=== PATIENT | female | born 1940 | race Caucasian/White ===

== ENCOUNTER 2018-08-23 15:40 | Emergency (ER) | payer MEDICARE, BC ==
--- NOTE | 2018-08-23 16:35 | EDM.PDOC ---
ED HPI GENERAL MEDICAL PROBLEM - General Chief Complaint: Lower Extremity Injury/Pain Stated Complaint: L LEG PAIN Time Seen by Provider: 08/23/18 16:00 Source of Information: Reports: Patient History Limitations: Reports: No Limitations - History of Present Illness INITIAL COMMENTS - FREE TEXT/NARRATIVE: 78-year-old female who was taking down a large picture from her wall at approximately 9 AM today and she lost her balance and fell with the picture in her hands landing on her left hip and side. She did not hit her head. There was no loss of consciousness. She did have immediate pain in her left hip area but she was able to get up and walk. The pain has progressively worsened with time and it prompted her to go to her doctor's clinic [facility]. While there, she did have x-rays performed and urine the x-rays she rolled on her side and felt a pop in her left hip area and she has had severe pain with any kind of movement of her left lower extremity since that time. She has had no neck pain. She's had no back pain. Some nausea associated with the pain but no vomiting. She has had urine output today with no blood in the urine. No abdominal pain. No trouble breathing. She rates pain as a 3/10 now after meds were given by the embolus crew that brought her here from [facility]. With any kind of movement, her pain goes up to a 10/10. It is sharp and spasm-like. There are no other associated signs or symptoms. There are no other modifying factors. 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: see above L hip/upper thigh Pain Score (Numeric/FACES): 5 - Related Data Allergies Allergy/AdvReac Type Severity Reaction Status Date / Time No Known Allergies Allergy Verified 08/23/18 15:55 Home Meds: Home Meds Atenolol 50 mg PO BID 12/03/15 [History] Dextran 70/Hypromellose [Artificial Tears] 1 drop EYEBOTH ASDIRECTED PRN [History] Flecainide [Tambocor] 50 mg PO BID 12/03/15 [History] Ibuprofen [Advil] 200 mg PO Q6H PRN 12/03/15 [History] Omeprazole 20 mg PO DAILY PRN 12/03/15 [History] Triamterene/Hydrochlorothiazid [Triamterene-HCTZ 37.5-25 MG] 25 - 37.5 mg PO DAILY 12/03/15 [History] traZODone 200 tab PO BEDTIME 12/03/15 [History] Aspirin [Ecotrin] 81 mg PO DAILY 12/04/15 [History] Past Medical History HEENT History: Reports: Other (See Below) Other HEENT History: PLEGLAUCOMA Cardiovascular History: Reports: Afib (On baby aspirin only), High Cholesterol, Hypertension Gastrointestinal History: Reports: Cholelithiasis, Chronic Constipation, GERD Other Gastrointestinal History: BENIGN NEOPLASM OF COLON Genitourinary History: Reports: Other (See Below) Other Genitourinary History: RENAL MALIGNANT TUMOR Musculoskeletal History: Reports: Neck Pain, Chronic Neurological History: Reports: Other (See Below) Other Neuro History: Subarachnoid hemorrhage associated with a fall and head trauma Oncologic (Cancer) History: Reports: Renal - Infectious Disease History Infectious Disease History: Reports: Chicken Pox, Measles, Mumps - Past Surgical History GI Surgical History: Reports: Cholecystectomy, Colonoscopy (2), EGD Female Surgical History: Reports: Hysterectomy, Nephrectomy (Partial left nephrectomy) Oncologic Surgical History: Reports: Other (See Below) Social & Family History - Tobacco Use Smoking Status *Q: Former Smoker (None 40-50 years.) - Alcohol Use Alcohol Use History: No - Living Situation & Occupation Occupation: Retired Review of Systems - Review of Systems Review Of Systems: See Below Constitutional: Reports: No Symptoms Eyes: Reports: No Symptoms Ears: Reports: No Symptoms Nose: Reports: No Symptoms Mouth/Throat: Reports: No Symptoms Respiratory: Reports: No Symptoms Cardiovascular: Reports: No Symptoms GI/Abdominal: Reports: Nausea Genitourinary: Reports: No Symptoms. Denies: Hematuria Musculoskeletal: Reports: Leg Pain (Severe left hip and proximal thigh pain post fall.). Denies: Neck Pain, Back Pain Skin: Reports: No Symptoms (No open wounds.) Neurological: Reports: No Symptoms (No head injury. No loss of consciousness.) Psychiatric: Reports: No Symptoms ED EXAM, GENERAL - Physical Exam Exam: See Below Exam Limited By: No Limitations General Appearance: Alert, WD/WN, No Apparent Distress Eye Exam: Bilateral Eye: EOMI, Normal Inspection, PERRL Ears: Normal External Exam, Hearing Grossly Normal Nose: Normal Inspection, Normal Mucosa Throat/Mouth: Normal Inspection, Normal Voice, No Airway Compromise Head: Atraumatic, Normocephalic Neck: Normal Inspection, Supple, Non-Tender, Full Range of Motion Respiratory/Chest: No Respiratory Distress, Lungs Clear, Normal Breath Sounds, No Accessory Muscle Use, Chest Non-Tender Cardiovascular: Normal Peripheral Pulses, Regular Rate, Rhythm, No JVD Peripheral Pulses: 2+: Radial (L), Radial (R), Dorsalis Pedis (L), Dorsalis Pedis (R) GI/Abdominal: Normal Bowel Sounds, Soft, Non-Tender, No Organomegaly, No Distention, No Mass Back Exam: Normal Inspection Extremities: Normal Capillary Refill, Limited Range of Motion (Extreme pain with any movement of her left lower leg at the level of her hip and proximal thigh.) Neurological: Alert, Oriented, CN II-XII Intact, Normal Cognition, No Motor/ Sensory Deficits Psychiatric: Normal Affect Skin Exam: Warm, Dry, Intact, Normal Color, No Rash EKG INTERPRETATION EKG Date: 08/23/18 Time: 16:44 Rhythm: NSR Rate (Beats/Min): 66 [place]: Normal P-Wave: Enlarged QRS: Normal ST-T: Normal QT: Prolonged Comparison: Change From Previous EKG EKG Interpretation Comments: Normal sinus rhythm with a rate of 66. There is now a prolonged QTC which is different from 02/01/2018. Otherwise no change from 02/01/2018. Course - Vital Signs Last Recorded V/S: Last Vital Signs Temp 36.7 C 08/23/18 15:40 Pulse 80 08/23/18 17:27 Resp 18 08/23/18 17:27 BP 141/93 H 08/23/18 17:27 Pulse Ox 100 08/23/18 17:27 - Orders/Labs/Meds Orders: Active Orders 24 hr Category Date Time Status EKG Documentation Completion [RC] ASDIRECTED Care 08/23/18 16:37 Active Insert Urinary Catheter [OM.PC] Q24H Care 08/23/18 16:45 Ordered Urinary Catheter Assessment [RC] QSHIFT Care 08/23/18 16:37 Active NPO Now [Nothing per Oral Now Diet] [DIET] Diet 08/24/18 Breakfast Ordered Hip Min 2V or 3V w Pelvis Lt [CR] Stat Exams 08/23/18 16:36 Taken Morphine Med 08/23/18 16:39 Active 2 mg IVPUSH Q5M PRN Ondansetron [Zofran] Med 08/23/18 16:39 Active 4 mg IVPUSH Q10M PRN Sodium Chloride 0.9% [Normal Saline] 1,000 ml Med 08/23/18 16:45 Active IV ASDIRECTED Sodium Chloride 0.9% [Normal Saline] 500 ml Med 08/23/18 17:05 Active IV ASDIRECTED EKG 12 Lead [EK] Routine Ther 08/23/18 16:36 Ordered Medication Orders Sodium Chloride (Normal Saline) 1,000 mls @ 125 mls/hr IV ASDIRECTED JANET Sodium Chloride (Normal Saline) 500 mls @ 999 mls/hr IV ASDIRECTED JANET Last Admin: 08/23/18 17:05 Dose: 999 mls/hr Morphine Sulfate (Morphine) 2 mg IVPUSH Q5M PRN PRN Reason: Hip pain Last Admin: 08/23/18 17:22 Dose: 2 mg Admin: 08/23/18 17:06 Dose: 2 mg Ondansetron HCl (Zofran) 4 mg IVPUSH Q10M PRN PRN Reason: Nausea/Vomiting Labs: Laboratory Tests 08/23/18 08/23/18 08/23/18 Range/Units 16:05 16:05 17:17 WBC 15.5 H (4.5-12.0) X10-3/uL RBC 4.41 (3.23-5.20) x10(6)uL Hgb 13.4 (11.5-15.5) g/dL Hct 38.9 (30.0-51.3) % MCV 88.1 (80-96) fL MCH 30.4 (27.7-33.6) pg MCHC 34.4 (32.2-35.4) g/dL RDW 13.0 (11.5-15.5) % Plt Count 280 (125-369) X10(3)uL MPV 7.3 L (7.4-10.4) fL Add Manual Diff Yes Neutrophils % (Manual) 93 H (46-82) % Lymphocytes % (Manual) 2 L (13-37) % Monocytes % (Manual) 5 (4-12) % Sodium 130 L (135-145) mmol/L Potassium 3.7 (3.5-5.3) mmol/L Chloride 96 L (100-110) mmol/L Carbon Dioxide 24 (21-32) mmol/L BUN 17 (7-18) mg/dL Creatinine 0.9 (0.55-1.02) mg/dL Est Cr Clr Drug Dosing 42.06 mL/min Estimated GFR (MDRD) > 60 (>60) BUN/Creatinine Ratio 18.9 (9-20) Glucose 139 H (80-116) mg/dL Calcium 9.3 (8.6-10.2) mg/dL Total Bilirubin 1.5 H (0.1-1.3) mg/dL AST 34 H D (5-25) IU/L ALT 38 H D (12-36) U/L Alkaline Phosphatase 49 L (56-112) IU/L Total Protein 6.8 (6.0-8.0) g/dL Albumin 4.0 (3.2-4.6) g/dL Globulin 2.8 g/dL Albumin/Globulin Ratio 1.4 Urine Color Yellow (YELLOW) Urine Appearance Slightly cloudy (CLEAR) Urine pH 6.0 (5.0-6.5) Ur Specific [place] 1.020 (1.010-1.025) Urine Protein Negative (NEGATIVE) mg/dL Urine Glucose (UA) Normal (NORMAL) mg/dL Urine Ketones 50 H (NEGATIVE) mg/dL Urine Occult Blood Negative (NEGATIVE) Urine Nitrite Negative (NEGATIVE) Urine Bilirubin Negative (NEGATIVE) Urine Urobilinogen Normal (NEGATIVE) mg/dL Ur Leukocyte Esterase Negative (NEGATIVE) Urine RBC 0-5 (0-5) Urine WBC 0-5 (0-5) Ur Squamous Epith Cells Few H (NS,R,O) Urine Bacteria Few H (NS) Urine Mucus Few H (NS) Meds: Medications Generic Name Dose Route Start Last Admin Trade Name Freq PRN Reason Stop Dose Admin Sodium Chloride 1,000 mls @ 125 mls/hr 08/23/18 16:45 Normal Saline IV ASDIRECTED JANET Sodium Chloride 500 mls @ 999 mls/hr 08/23/18 17:05 08/23/18 17:05 Normal Saline IV 999 mls/hr ASDIRECTED JANET Administration Morphine Sulfate 2 mg 08/23/18 16:39 08/23/18 17:22 Morphine IVPUSH 2 mg Q5M PRN Administration Hip pain Ondansetron HCl 4 mg 08/23/18 16:39 Zofran IVPUSH Q10M PRN Nausea/Vomiting - Radiology Interpretation Free Text/Narrative:: Pelvis and left hip x-ray shows a displaced subcapital hip fracture. - Re-Assessments/Exams Free Text/Narrative Re-Assessment/Exam: 08/23/18 18:03: Patient's laboratory data does show some mild LFT elevation but were otherwise unremarkable including a normal urine. Her EKG was essentially normal. Patient has a displaced left Hip fracture. She will need orthopedic specially services which are not available at [facility] [place] at this time. I had discussed the finding of the x-ray with the patient and her and they are desirous of going to [facility] in [place]. Therefore, I called and discussed the patient's case with Dr. Woods, hospitalist at [facility] in [place], and he has agreed to accept the patient in transfer. Therefore, the patient will be transferred to [facility] in [place] via ambulance. The patient has received ongoing pain medications IV with good control of her pain. A [place] catheter has been placed. The patient has been kept nothing by mouth. IV fluids have been given and she is receiving 150 mL per hour normal saline. The patient has remained vitally stable while in the emergency department. Departure - Departure Time of Disposition: 18:10 Disposition: DC/Tfer to Acute Hospital 02 Condition: Good Clinical Impression: Elevated LFTs Subcapital fracture of left hip Qualifiers: Encounter type: initial encounter Fracture type: closed Qualified Code(s): S72.012A - Unspecified intracapsular fracture of left femur, initial encounter for closed fracture Fall from standing Qualifiers: Encounter type: initial encounter Qualified Code(s): W19.XXXA - Unspecified fall, initial encounter - Discharge Information Referrals: Wayne Mendoza MD [Primary Care Provider] - Forms: ED Department Discharge - My Orders Last 24 Hours: My Active Orders 08/23/18 16:36 Hip Min 2V or 3V w Pelvis Lt [CR] Stat EKG 12 Lead [EK] Routine 08/23/18 16:37 EKG Documentation Completion [RC] ASDIRECTED Urinary Catheter Assessment [RC] QSHIFT 08/23/18 16:39 Morphine 2 mg IVPUSH Q5M PRN Ondansetron [Zofran] 4 mg IVPUSH Q10M PRN 08/23/18 16:45 Insert Urinary Catheter [OM.PC] Q24H Sodium Chloride 0.9% [Normal Saline] 1,000 ml IV ASDIRECTED 08/23/18 17:05 Sodium Chloride 0.9% [Normal Saline] 500 ml IV ASDIRECTED 08/24/18 Breakfast NPO Now [Nothing per Oral Now Diet] [DIET] - Assessment/Plan Last 24 Hours: My Active Orders 08/23/18 16:36 Hip Min 2V or 3V w Pelvis Lt [CR] Stat EKG 12 Lead [EK] Routine 08/23/18 16:37 EKG Documentation Completion [RC] ASDIRECTED Urinary Catheter Assessment [RC] QSHIFT 08/23/18 16:39 Morphine 2 mg IVPUSH Q5M PRN Ondansetron [Zofran] 4 mg IVPUSH Q10M PRN 08/23/18 16:45 Insert Urinary Catheter [OM.PC] Q24H Sodium Chloride 0.9% [Normal Saline] 1,000 ml IV ASDIRECTED 08/23/18 17:05 Sodium Chloride 0.9% [Normal Saline] 500 ml IV ASDIRECTED 08/24/18 Breakfast NPO Now [Nothing per Oral Now Diet] [DIET]
[2018-08-23] MEDS ORDERED: Ondansetron 4 MG/2 ML SDV IVPUSH PRN (16:39)
[2018-08-23] MEDS ORDERED: Sodium Chloride 0.9% 500 ML IV ONE (16:39)
[2018-08-23] MEDS ORDERED: Sodium Chloride 0.9% 1,000 ML IV SCH (16:45)
[2018-08-23] MEDS ORDERED: Sodium Chloride 0.9% 500 ML IV SCH ×2 (17:05)
[2018-08-23] MEDS: Morphine 2 MG/ML Syringe IVPUSH PRN ×3 (17:06→18:53)
[2018-08-23 18:56] VITALS: BP 137/59
--- NOTE | 2018-08-24 10:49 | CR ---
INDICATION: Fall with left hip fracture, question displaced now. LEFT HIP WITH PELVIS: Frontal view of the pelvis with frontal and lateral views of the left hip were obtained and revealed a subcapital femoral neck fracture, confirmed compared with 08/23/18 study from 1355 hours. The current study is 1634 hours. There is lateral offset of the distal fracture fragment with the femoral head angulated laterally. There is also cranial overriding of the distal fracture fragment of the left femur. Mild degenerative changes are noted at the hip joints with only minimal loss of joint space suggested. Sacroiliac joints appear to be fairly intact with minimal degenerative change at the left sacroiliac joint. IMPRESSION: Left subcapital femoral neck fracture with deformity - change in position is noted compared with the earlier study obtained at the clinic - the undisplaced fracture seen at the clinic is now displaced. MTDD
== END 2018-08-23 18:55 ==
LOC: FB.ED 15:40
DX: S72.012A Unspecified intracapsular fracture of left femur, initial encounter for closed fracture (principal); E78.00 Pure hypercholesterolemia, unspecified; R79.89 Other specified abnormal findings of blood chemistry; I10 Essential (primary) hypertension; I48.91 Unspecified atrial fibrillation; Z87.891 Personal history of nicotine dependence; Z79.899 Other long term (current) drug therapy; W17.89XA Other fall from one level to another, initial encounter
CPT/HCPCS: 36415; 51702; 73502; 80053; 81001; 85025; 93005; 93010; 96361; 96374; 96376; 99285; J2270; J7030

== ENCOUNTER 2022-07-26 08:24 | Day surgery (SDC) | payer MEDICARE, OTHER ==
[2022-07-26] MEDS ORDERED: fentaNYL 100 MCG/2 ML SDV IV ONE (08:25)
[2022-07-26] MEDS ORDERED: Sodium Chloride 0.9% 10 ML Syringe IV ONE (08:25)
[2022-07-26] MEDS ORDERED: Midazolam 1 MG/ML 2 ML SDV IV ONE (08:25)
[2022-07-26] MEDS ORDERED: Lactated Ringers 1,000 ML IV PRN (08:30)
[2022-07-26] MEDS ORDERED: Sodium Chloride 0.9% 10 ML Syringe FLUSH PRN (08:30)
[2022-07-26] MEDS ORDERED: acetaZOLAMIDE 500 MG Cap.ER PO ONE (10:30)
[2022-07-26 11:27] VITALS: BP 148/66; PULSE 51
== END 2022-07-26 11:10 | disposition home or self-care (01) ==
LOC: FB.SDS 08:24
PROVIDERS: ATTEND Ophthalmology
DX: H25.813 Combined forms of age-related cataract, bilateral (principal); H40.1131 Primary open-angle glaucoma, bilateral, mild stage; H16.103 Unspecified superficial keratitis, bilateral; H35.362 Drusen (degenerative) of macula, left eye; H18.413 Arcus senilis, bilateral; E87.1 Hypo-osmolality and hyponatremia; I48.0 Paroxysmal atrial fibrillation; I10 Essential (primary) hypertension; G47.00 Insomnia, unspecified; Z79.899 Other long term (current) drug therapy; Z79.82 Long term (current) use of aspirin; Z98.890 Other specified postprocedural states; Z87.891 Personal history of nicotine dependence
CPT/HCPCS: 00142; 66984; A9270; J2250; J3010; J3490; V2632

== ENCOUNTER 2022-08-09 06:29 | Day surgery (SDC) | payer MEDICARE, OTHER ==
[2022-08-09] MEDS ORDERED: Midazolam 1 MG/ML 2 ML SDV IV ONE (06:30)
[2022-08-09] MEDS ORDERED: fentaNYL 100 MCG/2 ML SDV IV ONE (06:30)
[2022-08-09] MEDS ORDERED: Glycopyrrolate 0.2 MG/ML 5 ML MDV IV ONE (06:30)
[2022-08-09] MEDS ORDERED: Lactated Ringers 1,000 ML IV PRN (06:45)
[2022-08-09] MEDS ORDERED: Sodium Chloride 0.9% 10 ML Syringe FLUSH PRN (06:45)
[2022-08-09] MEDS ORDERED: acetaZOLAMIDE 500 MG Cap.ER PO ONE (08:45)
[2022-08-09 09:50] VITALS: BP 150/85; PULSE 66
== END 2022-08-09 09:31 | disposition home or self-care (01) ==
LOC: FB.SDS 06:29
PROVIDERS: ATTEND Ophthalmology
DX: H26.9 Unspecified cataract (principal); I48.0 Paroxysmal atrial fibrillation; I10 Essential (primary) hypertension; E78.5 Hyperlipidemia, unspecified; Z79.899 Other long term (current) drug therapy; Z87.891 Personal history of nicotine dependence
CPT/HCPCS: 00142; A9270-GY; J2250; J3010; J3490; V2632

== ENCOUNTER 2022-10-09 09:25 | Emergency (ER) | payer MEDICARE, OTHER ==
[2022-10-09] MEDS ORDERED: Ondansetron 4 MG/2 ML SDV IVPUSH ONE (09:38)
[2022-10-09] MEDS: Sodium Chloride 0.9% 10 ML Syringe FLUSH PRN ×2 (09:50→10:41)
[2022-10-09] MEDS ORDERED: Sodium Chloride 0.9% 500 ML IV ONE ×2 (09:51→10:35)
[2022-10-09] MEDS ORDERED: Sodium Chloride 0.9% 1,000 ML IV SCH (10:00)
[2022-10-09 10:27] LABS: BASOPHILS PERCENT AUTO 0.5 % (0.2-1.5); EOSINOPHILS PERCENT AUTO 0.6 % (0.6-8.1); HEMATOCRIT 40.4 % (34.2-48.2); HEMOGLOBIN 13.7 g/dL (11.4-15.5); LYMPHOCYTES ABSOLUTE AUTO 0.9 x10-3/uL (1.0-4.4); LYMPHOCYTES PERCENT AUTO 11.1 % (18.4-52.1); MEAN CORPUSCULAR HEMOGLOBIN 30.2 pg (23.9-33.9); MEAN CORPUSCULAR HGB CONC 34.1 g/dL (31.9-34.8); MEAN CORPUSCULAR VOLUME 88.6 fL (76.7-100.5); MEAN PLATELET VOLUME 7.1 fL (7.1-12.4); MONOCYTES ABSOLUTE AUTO 0.6 x10-3/uL (0.3-1.0); MONOCYTES PERCENT AUTO 7.4 % (4.4-15.7); NEUTROPHILS ABSOLUTE AUTO 6.5 x10-3/uL (1.5-6.3); NEUTROPHILS PERCENT AUTO 80.4 % (30.8-76.2); PLATELET COUNT,PLT 289 x10(3)uL (151-488); RED BLOOD CELL COUNT 4.56 x10(6)uL (3.60-5.20); RED CELL DISTRIBUTION WIDTH 14.3 % (12.3-16.5)
[2022-10-09 10:35] LABS: BLOOD UREA NITROGEN,BUN 19 mg/dL (7-18); BUN/CREATININE RATIO 27.1 (9-20); CALCIUM 10.3 mg/dL (8.6-10.2); CARBON DIOXIDE,CO2 25 mmol/L (21-32); CHLORIDE,CL 98 mmol/L (100-110); CREATININE 0.7 mg/dL (0.55-1.02); ESTIMATED GFR 87 mL/min (>60); GLUCOSE RANDOM 112 mg/dL (80-116); POTASSIUM,K 3.9 mmol/L (3.5-5.3); SODIUM,NA 136 mmol/L (135-145)
[2022-10-09] MEDS ORDERED: Metoclopramide 10 MG/2 ML SDV IVPUSH ONE (10:35)
[2022-10-09 10:43] LABS: TROPONIN I 10.4 pg/mL (4.0-60.3)
[2022-10-09 10:49] LABS: A/G RATIO 1.2; ALANINE AMINOTRANSFERASE,ALT 24 U/L (12-36); ALBUMIN 3.8 g/dL (3.2-4.6); ALKALINE PHOSPHATASE 56 IU/L (56-112); ASPARTATE AMNIOTRANSFERASE,AST 18 IU/L (5-25); MAGNESIUM 1.8 mg/dL (1.8-2.5)
[2022-10-09 11:20] LABS: BILIRUBIN,URINE NEGATIVE (NEGATIVE); GLUCOSE,URINE NORMAL (NORMAL); KETONES,URINE 50 mg/dL (NEGATIVE); LEUKOCYTE ESTERASE,URINE LARGE (NEGATIVE); NITRITE,URINE NEGATIVE (NEGATIVE); OCCULT BLOOD,URINE MODERATE (NEGATIVE); PROTEIN,URINE NEGATIVE (NEGATIVE); UROBILINOGEN,URINE NORMAL (NEGATIVE)
[2022-10-09 11:24] LABS: APPEARANCE,URINE SLIGHTLY CLOUDY (CLEAR); BACTERIA,URINE MANY (NS); COLOR,URINE YELLOW (YELLOW); SQUAMOUS EPITHELIAL CELLS,UR FEW (NS,R,O); WBC,URINE 50-75 (0-5)
[2022-10-09] MEDS ORDERED: cefTRIAXone 2 GM Vial IVPUSH ONE (11:28)
[2022-10-09 13:22] VITALS: BP 124/71; PULSE 72
== END 2022-10-09 11:55 | disposition home or self-care (01) ==
LOC: FB.ED 09:25
DX: E86.0 Dehydration (principal); N39.0 Urinary tract infection, site not specified; R31.9 Hematuria, unspecified; I48.91 Unspecified atrial fibrillation; I10 Essential (primary) hypertension; E78.00 Pure hypercholesterolemia, unspecified; K21.9 Gastro-esophageal reflux disease without esophagitis; M19.90 Unspecified osteoarthritis, unspecified site; Z79.82 Long term (current) use of aspirin; Z79.899 Other long term (current) drug therapy
CPT/HCPCS: 36415; 80053; 81001; 83605; 83690; 83735; 84484; 85025; 86140; 87086; 87088; 93005; 96361; 96374; 96375; 99284; J0696; J2405; J2765; J3490; J7030; J7040

== ENCOUNTER 2024-12-15 12:10 | Emergency (ER) | payer MEDICARE, OTHER ==
[2024-12-15] MEDS ORDERED: Sodium Chloride 0.9% 10 ML Syringe FLUSH PRN (12:12)
[2024-12-15] MEDS: Ondansetron 4 MG/2 ML SDV IVPUSH ONE (12:22)
[2024-12-15 12:53] LABS: MEAN PLATELET VOLUME 6.6 fL (7.1-12.4); PLATELET COUNT,PLT 347 x10(3)uL (151-488); RED BLOOD CELL COUNT 4.73 x10(6)uL (3.60-5.20); RED CELL DISTRIBUTION WIDTH 14.0 % (12.3-16.5); WHITE BLOOD CELL COUNT,WBC 10.9 x10-3/uL (3.0-10.3)
[2024-12-15 13:00] LABS: A/G RATIO 1.2; ALANINE AMINOTRANSFERASE,ALT 17 U/L (12-36); ASPARTATE AMNIOTRANSFERASE,AST 14 IU/L (5-25); BILIRUBIN TOTAL 1.5 mg/dL (0.1-1.3); BLOOD UREA NITROGEN,BUN 8 mg/dL (7-18); CARBON DIOXIDE,CO2 25 mmol/L (21-32); CHLORIDE,CL 90 mmol/L (100-110); CREATININE 0.6 mg/dL (0.55-1.02); EST CRCL DRUG DOSING (CG) 59.80 mL/min; ESTIMATED GFR 90 mL/min (>60); GLUCOSE RANDOM 161 mg/dL (80-116); POTASSIUM,K 3.1 mmol/L (3.5-5.3); PROTEIN TOTAL,TP 7.3 g/dL (6.0-8.0); SODIUM,NA 127 mmol/L (135-145)
[2024-12-15] MEDS: Nitroglycerin 0.4 MG Tab.SL SL ONE (13:07)
[2024-12-15 13:17] LABS: PRO B-TYPE NATRIUR PEPT,BNPPRO 1691.0 pg/mL (<=450)
[2024-12-15 13:22] LABS: LYMPHOCYTES PERCENT MAN 5 % (13-37); MONOCYTES PERCENT MAN 3 % (4-12); SEG NEUTROPHILS PERCENT MAN 92 % (46-82)
[2024-12-15 16:10] VITALS: BP 173/93; PULSE 74
== END 2024-12-15 15:52 ==
LOC: FB.ED 12:10
DX: I63.9 Cerebral infarction, unspecified (principal); I16.9 Hypertensive crisis, unspecified; I10 Essential (primary) hypertension; I48.91 Unspecified atrial fibrillation; E78.00 Pure hypercholesterolemia, unspecified; K21.9 Gastro-esophageal reflux disease without esophagitis; Z90.710 Acquired absence of both cervix and uterus; Z79.899 Other long term (current) drug therapy; Z79.82 Long term (current) use of aspirin
CPT/HCPCS: 36415; 70450; 71045; 80053; 83880; 84484; 85025; 93005; 96374; 96375; 99285; A9270; J2270; J2405; J7030; 93010